=== PATIENT | male | born 1960 | race Caucasian/White ===

== ENCOUNTER 2024-11-18 04:39 | Emergency (ER) | payer MEDICAID, SELFPAY ==
[2024-11-18] VITALS (10 sets, daily range): BP systolic 101–134; BP diastolic 64–74; BMI 34.5
[2024-11-18 05:03] LABS: Hematocrit 44.7 % (39.0-52.0); Hemoglobin 14.1 g/dL (13.0-18.0); Mean Corp Hgb Conc. 31.5 g/dL (33.0-37.0); Mean Corpuscular Volume 84.0 fL (80.0-94.0); Nucleated Red Blood Cells % 0 % (-); Platelet Count 132 10^3/uL (130-400); Red Cell Dist. Width 16.5 % (11.5-14.5)
[2024-11-18 05:24] LABS: ALT (SGPT) 49 U/L (0-50); AST (SGOT) 94 U/L (17-59); Albumin 3.3 g/dl (3.5-5.0); Alkaline Phosphatase 92 U/L (38-126); Blood Urea Nitrogen 40 mg/dl (9-20); Calcium 8.3 mg/dl (8.4-10.2); Carbon Dioxide 32 mmol/L (22-30); Chloride 105 mmol/L (98-107); Estimated Creatinine Clearance 86 ml/min; Glucose 107 mg/dl (70-99); Potassium 4.7 mmol/L (3.5-5.1); Sodium 143 mmol/L (135-145); Total Protein 6.8 g/dl (6.3-8.2); eGFR > 60.00
[2024-11-18 05:30] LABS: Troponin I < 0.012 ng/ml
[2024-11-18 05:31] LABS: APTT 26.3 Sec (23.4-35.0)
[2024-11-18 05:49] LABS: Depakane 44.2 ug/ml (50.0-120.0)
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
[2024-11-18 08:25] LABS: Urine Character Clear (Clear)
[2024-11-18 08:59] LABS: Troponin I < 0.012 ng/ml
[2024-11-18 09:08] LABS: Urine Red Blood Cell 0-2 /HPF (0-2); Urine Squamous Cell 0-2 /LPF (Few)
[2024-11-18] MEDS: KEFLEX 500 MG PO (11:02)
== END 2024-11-18 13:44 ==
LOC: EMR 04:39
PROVIDERS: Student in an Organized Health Care Education/Training Program; EMERGENCY PHYSICIAN Emergency Medicine; FAMILY PHYSICIAN Internal Medicine
DX: R07.89 Other chest pain (principal); N39.0 Urinary tract infection, site not specified; Z95.1 Presence of aortocoronary bypass graft
CPT/HCPCS: 99283; 71046; 80053; 80164; 81003; 81015; 84484; 85025; 85730; 93005